=== PATIENT | male | born 1985 | race Caucasian/White ===

== ENCOUNTER 2019-12-15 08:00 | Outpatient (RCR) | payer SELFPAY, OTHER ==
--- NOTE | 2019-10-12 11:02 | HP.OTEVAL ---
Patient's Visit Information AMANDA AUGUSTE is a 34 year old M, referred to Occupational Therapy by [facility], with a diagnosis of left hand tendon laceration. Date of Evaluation: 10/06/19 Occupational Therapist: Stephanie Hernandez, RIGO/German, CHT - Subjective This 34 year old male was seen for OT eval with dx of laceration of specified muscles fascia and tendons at wrist and hand level left hand pt states injury was after a drill accident while he was drilling through wood post the wood split and the drill lacerated his left IF. Pt states injury was two weeks ago and sx was 1 week ago on August and sx was on . pt returns to in 5 weeks - Pain left hand 4 Pain Intensity Range: 2, 4 - ROM MP: right 0/75 left NT PIP: right 0/95 left NT DIP: right 0/75 DIP of left IF 0/10 AROM only - Strength Strength Comments: will test at later date - Sensation Thumb: right 3.22 left 3.84 Index: right 3.22 left 3.84 Middle: right 3.22 left 3.84 Ring: right 3.22 left 3.84 Little: right 3.22 left 3.84 Sensation Comments: pt reports tingling of finger tips - Quick DASH-Disab of Arm,Shoulder& Hand Quick DASH Score: 65.0000 - Goals Goal:100% adherence to protocol: Yes Comment: following protocol with flexor tendon repair. Goal:Daily scar massage when approriate: Yes Goal:ROM equal to unaffected hand: Yes Goal:Medical Information Officer/Pinch strength at least 75% of unaffected hand: Yes Goal:No pain with affected hand use: Yes Goal:Full use of affected hand in daily activities including: Yes Goal:Decrease scar hypersensitivity: Yes - Rehabilitation General Assessment: Pt weeks 2 and 2 day s/p flexor tendon repair. Due to healing tendon pt limited with functional use of left hand for ADLs and IADLs. Pt would benefit from skilled OT services 1-2x week for 8 weeks. Due to pts distance from facility pt agree to 1x week and agree to increase apts if needed. pt arrives with dorsal blocking orthosis with volar immobilization of IF up to distal interaphalangeal level. is allowing gentle AROM DIP 3x a day while maintaining MP and PIP joints extended. therapist ed. pt on AROM of DIP, signs of infection and use of orthosis. pt demo understanding and agree to POC. Rehabilitation Potential: Excellent - Anticipated Interventions A/AAROM/PROM, Strengthening, Scar Care, Desensitization, Sensory Retraining, Modalities, Orthoses - Visit Plan Frequency: 1-2x /Week Duration: 2 Months General Plan: Therapist will initiate AROM of left IF DIP with MP/PIP extended. therapist ed. pt on NO PROM of IP/MP. if needed in a few weeks can add wrist AROM/isolated MP flexion. therapist will not initiate any strengthening until cleared by surgon. TEXT: Thank you for the opportunity to evaluate your patient. For Medicare and Medicare HMO plans, please review the plan of care and approve it. It will need to be FAXED BACK to us at [phone] for Medicare purposes. Please let me know if there are questions or concerns regarding this plan of care. Physician Signature: Date:
--- NOTE | 2019-11-01 19:27 | HP.OTREVAL ---
[facility], It has been my pleasure to treat AMANDA AUGUSTE over the last 5 visits for left hand tendon laceration. Please see the progress note below for an update on the occupational therapy plan of care! 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 left MCP 70* flex (with PIP straight). pt demo only left IF DIP flex within othosis -20* with pts heavy force - therapist questioning if scar adhesions limiting tendon glides-therapist has to remind pt on precautions early on in therapy- pt is performing wrist ROM, DIP flex in orthosis- and MCP flex while keeping PIP straight-pt is performing scar massage and has elastomer for night use- pt states he did try to bend his finger to see if it would essentially performing PROM of DIP-. . 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 please re-eval and advise in POC. Plan Frequency: 1-2x /Week Duration: 2 Months Plan: Therapist will initiate AROM of left IF DIP with MP/PIP extended. therapist ed. pt on NO PROM of IP/MP. if needed in a few weeks can add wrist AROM/isolated MP flexion. therapist will not initiate any strengthening until cleared by surgon. [ End ] Goals - Goals Patient Goals: Regain Mobility, Improve Fine Motor Skills, Use Hand/Wrist/Arm Normally Again Goal:100% adherence to protocol: Yes Goal:Daily scar massage when approriate: Yes Goal:ROM equal to unaffected hand: Yes Goal:Jewelry Sales Coordinator/Pinch strength at least 75% of unaffected hand: Yes Goal:No pain with affected hand use: Yes Goal:Full use of affected hand in daily activities including: Yes Goal:Decrease scar hypersensitivity: Yes Anticipated Interventions Anticipated Interventions: A/AAROM/PROM, Strengthening, Scar Care, Desensitization, Sensory Retraining, Modalities, Orthoses Please do not hesitate to contact me at [phone] by phone or if you have questions or concerns regarding this new plan of care! Sincerely, Stephanie Hernandez, OTR/L, CHT
--- NOTE | 2019-12-15 09:11 | HP.OTREVAL ---
[facility], It has been my pleasure to treat AMANDA AUGUSTE over the last 10 visits for left hand tendon laceration. Please see the progress note below for an update on the occupational therapy plan of care! Subjective: pt states he is ok- states he is trying to do his exercises daily- feels if fingers are not karuna taped for functional daily tasks he does catch his finger on items. Objective/Function: PIP 65* with blocking. active PIP 50*. no active DIP flex. with blocking 15*. pt has been using karuna straps for functional daily tasks. has been doing scar massage, blocking of PIP and DIP. no sig. change in pts functional ROM at this time- Thearpy has used US, PB, Cupping and hawlk tool to soften scar tissue but min. changes noted with ROM . please re-eval and advise. Plan Plan: pt to return to for further assessment and advisement Goals - Goals Patient Goals: Regain Mobility, Improve Fine Motor Skills, Use Hand/Wrist/Arm Normally Again Goal:100% adherence to protocol: Yes Goal:Daily scar massage when approriate: Yes Goal:ROM equal to unaffected hand: Yes Goal:Monogram Machine Operator/Pinch strength at least 75% of unaffected hand: Yes Goal:No pain with affected hand use: Yes Goal:Full use of affected hand in daily activities including: Yes Goal:Decrease scar hypersensitivity: Yes Anticipated Interventions Anticipated Interventions: A/AAROM/PROM, Strengthening, Scar Care, Desensitization, Sensory Retraining, Modalities, Orthoses Please do not hesitate to contact me at [phone] by phone or if you have questions or concerns regarding this new plan of care! Sincerely, Stephanie Hernandez, OTR/L, CHT
== END 2019-12-15 19:00 | disposition home or self-care (01) ==
LOC: OT 08:00
PROVIDERS: PCP Family Medicine
DX: S61.402D Unspecified open wound of left hand, subsequent encounter (principal)
CPT/HCPCS: 97035; 97110; 97140; 97166; 97530